=== PATIENT | male | born 1975 | race Caucasian/White ===

== ENCOUNTER 2022-09-11 07:52 | Outpatient (CLI) | payer BC, SELFPAY ==
[2022-09-11 13:51] LABS: Albumin* 4.3 g/dL (3.3-5.0); Chloride* 108 mmol/L (96-114)
[2022-09-11 13:52] LABS: Potassium* 4.8 mmol/L (3.6-5.1); Sodium* 141 mmol/L (135-149)
[2022-09-11 13:54] LABS: Alkaline Phosphatase* 73 U/L (40-150); Aspartate Amino Transferase* 30 U/L (12-35); Bilirubin Total* 0.7 mg/dL (0.1-1.5); Blood Urea Nitrogen* 11 mg/dL (5-24); Carbon Dioxide* 27 mmol/L (20-32); Cholesterol* 193 mg/dL (90-199); Creatinine* 0.9 mg/dL (0.5-1.5); Estimated Glomerular Filt Rate 106 ml/min; Glucose* 88 mg/dL (60-115); Total Protein* 6.7 g/dL (6.0-8.3); Triglycerides* 192 mg/dL (40-149)
[2022-09-11 13:55] LABS: Alanine Aminotransferase* 27 U/L (4-50); Calcium* 9.5 mg/dL (8.4-10.6); HDL Cholesterol* 46 mg/dL (>=40); LDL Cholesterol Calculated 109 mg/dL (<100)
== END 2022-09-11 07:53 | disposition home or self-care (01) ==
LOC: FRMREF 07:53
PROVIDERS: PCP Family Medicine; Visit Provider Family Medicine
DX: Z13.6 Encounter for screening for cardiovascular disorders (principal)
CPT/HCPCS: 80053; 80061